=== PATIENT | male | born 1965 | race Caucasian/White ===

== ENCOUNTER 2020-12-06 06:54 | Outpatient (NON) | payer BC, SELFPAY ==
[2020-12-06 19:24] LABS: SARS-CoV-2 RNA PCR Negative
== END 2020-12-06 06:55 ==
PROVIDERS: PCP Family Medicine; Visit Provider Physician Assistant
DX: R09.89 Other specified symptoms and signs involving the circulatory and respiratory systems (principal); Z20.822 Contact with and (suspected) exposure to COVID-19
CPT/HCPCS: C9803; U0003

== ENCOUNTER 2024-06-06 01:11 | Day surgery (SDC) | payer BC, SELFPAY ==
[2024-05-19 10:43] VITALS: BMI 48.2
[2024-06-06 06:23] VITALS: BP 140/89; PULSE 95; RESP 18; TEMP 36.1; O2SAT 95
[2024-06-06] MEDS: LACTATED RINGERS 1,000 ML 150 ML IV CONT (06:33)
--- NOTE | 2024-06-06 07:19 | PM.HPGS ---
History of Present Illness History of Present Illness Consent: Risks, benefits, and alternatives have been discussed and questions answered. Patient agrees to proceed with procedure. Chief complaint: hx colon polyps Narrative: Jeremiah Norton is a 58 year old male with colon polyp 5 years ago Review of Systems Review of Systems: All systems reviewed & are unremarkable except as noted in HPI and below PMFSH Surgical History Surgical History History of carpal tunnel release (~2002) History of open reduction and internal fixation (ORIF) procedure (~1982) History of tonsillectomy (~1969) Hx of cholecystectomy (~2005) Social History Social History (Updated 01/11/24 @ 15:45 by Farida Crowe) Years smoked: 1 Smoking status: Never smoker Smoking end date: 11/30/86 Alcohol intake: current Drinks per week: 6 Substance use: never Lack of Transportation: No Lack of Food: Never True Current Housing: I Have Housing Concerned About Future Housing: No Difficulty Paying Gas/Electric Bills: No Difficulty Paying for Meds: No Currently Unemployed: No Education: Trade/Vocational Certificate Difficulty w/ Childcare or Family Care: No Living arrangements: with family Spiritual care concerns: No Meds Home Medications and Allergies Home Medications Medication Instructions Recorded Confirmed Type aspirin 81 mg tablet,delayed 81 mg PO DAILY 11/17/19 05/19/24 History release esomeprazole magnesium 20 mg 20 mg PO DAILY 11/17/19 05/19/24 History capsule,delayed release (Nexium) diclofenac sodium 75 mg 75 mg PO BID #180 tabs 03/31/23 05/19/24 Rx tablet,delayed release fluoxetine 20 mg capsule 20 mg PO .COMPLEX #90 caps 07/02/23 05/19/24 Rx simvastatin 5 mg tablet See Rx Instructions .Route 01/20/24 05/19/24 Rx .COMPLEX #90 tabs semaglutide (weight loss) 2.4 2.4 mg (0.75 mL) subcut WEEKLY #9 04/28/24 06/06/24 Rx mg/0.75 mL subcutaneous pen mL injector (Sally) Allergies Allergy/AdvReac Type Severity Reaction Status Date / Time No Known Allergies Allergy Unknown Verified 06/06/24 06:22 Vital Signs Vital Signs - 24 hr 06/06/24 06:23 Temperature 97 F L Pulse Rate 95 Respiratory Rate 18 Blood Pressure 140/89 Pulse Oximetry 95 Oxygen Delivery Room Air Exam Const: General: comfortable and no acute distress HENMT: Face/Nose/Sinus: Normal nares present Eyes: General: appearance normal, both eyes and all related structures Neck: Neck: no JVD Resp: Auscultation: clear to auscultation bilaterally Cardio: Rate: regular rate Rhythm: regular rhythm GI: Inspection: non-distended GI Palp: Yes Soft to palpation Skin: General skin exam: normal color Neuro: General: gait normal Speech: normal speech Extrem: General: normal to inspection Psych: Mental Status: mental status grossly normal Assessment and Plan Assessment and plan (1) History of colon polyps: Code(s): Z86.010 - Personal history of colonic polyps Status: Acute Assessment and Plan: colonoscopy
--- NOTE | 2024-06-06 07:40 | WPDANESEPPF ---
Anes - Initial Pre Proc Eval Procedure: Operation Date: 06/06/24 07:30 Proposed Procedures p Colonoscopy - Caleb Jimenez MD Date/Time: 06/06/24 07:40 Surgeon: Caleb Jimenez MD Pre Op Diagnosis: hx colon polyps Patient Data Age: 58 Gender: M Height: 1.8 m Weight: 158.6 kg Last Vital Signs Temp 97 F L 06/06/24 06:23 Pulse 95 06/06/24 06:23 Resp 18 06/06/24 06:23 BP 140/89 06/06/24 06:23 Pulse Ox 95 06/06/24 06:23 O2 Del Method Room Air 06/06/24 06:23 Allergies Allergy/AdvReac Type Severity Reaction Status Date / Time No Known Allergies Allergy Unknown Verified 06/06/24 06:22 Home Medications Medication Instructions Recorded Confirmed Type aspirin 81 mg tablet,delayed 81 mg PO DAILY 11/17/19 05/19/24 History release esomeprazole magnesium 20 mg 20 mg PO DAILY 11/17/19 05/19/24 History capsule,delayed release (Nexium) diclofenac sodium 75 mg 75 mg PO BID #180 tabs 03/31/23 05/19/24 Rx tablet,delayed release fluoxetine 20 mg capsule 20 mg PO .COMPLEX #90 caps 07/02/23 05/19/24 Rx simvastatin 5 mg tablet See Rx Instructions .Route 01/20/24 05/19/24 Rx .COMPLEX #90 tabs semaglutide (weight loss) 2.4 2.4 mg (0.75 mL) subcut WEEKLY #9 04/28/24 06/06/24 Rx mg/0.75 mL subcutaneous pen mL injector (Sally) Patient hx anesthesia problems: none Family hx anesthesia problems: none Results Review: All pre-operative results and documents have been reviewed as part of the pre-operative evaluation. [facility] Surgical History Surgical History History of carpal tunnel release (~2002) History of open reduction and internal fixation (ORIF) procedure (~1982) History of tonsillectomy (~1969) Hx of cholecystectomy (~2005) Social History Social History (Updated 01/11/24 @ 15:45 by Farida Crowe) Years smoked: 1 Smoking status: Never smoker Smoking end date: 11/30/86 Alcohol intake: current Drinks per week: 6 Substance use: never Lack of Transportation: No Lack of Food: Never True Current Housing: I Have Housing Concerned About Future Housing: No Difficulty Paying Gas/Electric Bills: No Difficulty Paying for Meds: No Currently Unemployed: No Education: Trade/Vocational Certificate Difficulty w/ Childcare or Family Care: No Living arrangements: with family Spiritual care concerns: No Anes - Eval Final PreProcedure Day of Procedure 06/06/24 07:40 Patient weight: morbidly obese Heart: regular rate and rhythm Lungs: clear to auscultation Airway: Mallampati scale class III Neurological: alert and oriented Last oral intake: >/= 8 hours ASA classification: III Emergent: no Anesthetic plan: proceed Anesthesia type and monitoring: general GIVS and standard monitoring Results Review: All pre-operative results and documents have been reviewed as part of the pre-operative evaluation. Informed Consent: The patient's anesthetic plan and its attendant risks and benefits were discussed with the patient/family/POA. Questions were solicited and answers provided to the satisfaction of the patient/family/POA.
[2024-06-06 07:42] VITALS: BP 98/68; PULSE 85; RESP 23; O2SAT 95
[2024-06-06 07:52] VITALS: BP 111/71; PULSE 84; RESP 21; O2SAT 95
[2024-06-06 08:02] VITALS: BP 117/73; PULSE 75; RESP 20; O2SAT 97
== END 2024-06-06 08:08 | disposition home or self-care (01) ==
PROVIDERS: PCP Family Medicine; Visit Provider Internal Medicine Gastroenterology
PROC: 0DJD8ZZ Inspection of Lower Intestinal Tract, Via Natural or Artificial Opening Endoscopic (ICD-10-PCS; CPT 45378; principal; 2024-06-06 07:30)
DX: Z12.11 Encounter for screening for malignant neoplasm of colon (principal); K62.1 Rectal polyp; K57.30 Diverticulosis of large intestine without perforation or abscess without bleeding; K64.8 Other hemorrhoids; Z79.82 Long term (current) use of aspirin; Z79.85 Long-term (current) use of injectable non-insulin antidiabetic drugs; E66.01 Morbid (severe) obesity due to excess calories; Z68.42 Body mass index [BMI] 45.0-49.9, adult
CPT/HCPCS: 45385; 88305; J2704; J7120